=== PATIENT | female | born 1950 | race Caucasian/White ===

== ENCOUNTER → 2021-05-08 13:55 | Outpatient (BNVA) | payer MEDICARE, SELFPAY | PROVIDERS: PCP Family Medicine; Referring Provider Family Medicine; Visit Provider Podiatrist Foot & Ankle Surgery | DX: M79.671 Pain in right foot (principal); M79.672 Pain in left foot; M21.41 Flat foot [pes planus] (acquired), right foot; M21.42 Flat foot [pes planus] (acquired), left foot | CPT/HCPCS: 73630 ==

== ENCOUNTER 2021-05-09 06:00 | Outpatient (RCR) | payer MEDICARE, SELFPAY | END 2021-05-13 23:59 | disposition home or self-care (01) | LOC: GPT 06:00 | PROVIDERS: PCP Family Medicine; Referring Provider Family Medicine; Visit Provider Family Medicine | DX: S20.219D Contusion of unspecified front wall of thorax, subsequent encounter (principal); X58.XXXD Exposure to other specified factors, subsequent encounter | CPT/HCPCS: 97032; 97161; 97530 ==

== ENCOUNTER 2021-05-14 06:00 | Outpatient (RCR) | payer MEDICARE, SELFPAY | END 2021-06-13 23:59 | disposition home or self-care (01) | LOC: GPT 06:00 | PROVIDERS: PCP Family Medicine; Referring Provider Family Medicine; Visit Provider Family Medicine | DX: S20.219D Contusion of unspecified front wall of thorax, subsequent encounter (principal); X58.XXXD Exposure to other specified factors, subsequent encounter | CPT/HCPCS: 97032; 97110; 97530 ==

== ENCOUNTER → 2021-08-15 11:35 | Outpatient (BNVA) | payer MEDICARE, SELFPAY | PROVIDERS: PCP Family Medicine; Referring Provider Family Medicine; Visit Provider Orthopaedic Surgery | DX: M25.562 Pain in left knee (principal); M25.561 Pain in right knee; M17.0 Bilateral primary osteoarthritis of knee | CPT/HCPCS: 73560; 73565 ==

== ENCOUNTER → 2021-09-27 10:08 | Outpatient (BNVA) | payer MEDICARE, SELFPAY | PROVIDERS: PCP Family Medicine; Visit Provider Family Medicine | DX: R10.9 Unspecified abdominal pain (principal) | CPT/HCPCS: 81000 ==

== ENCOUNTER 2021-10-13 23:04 | Emergency (ER) | payer MEDICARE, SELFPAY ==
[2021-10-13 23:27] VITALS: BP 186/113; PULSE 81; RESP 16; TEMP 37.1; O2SAT 97
--- NOTE | 2021-10-13 23:40 | ED_ITS ---
HPI - Dental/Oral General: Chief complaint: Dental/Oral Stated complaint: Bottom Jaw Pain\Left Ear Pain Time Seen by Provider: 10/13/21 23:20 History of Present Illness: HPI Narrative: Presents with postprocedural dental pain. Patient currently on clindamycin for this infection has had a cap placed on her front tooth and then had some teeth cleaning after that. Patient has pain through her lower jaw with tenderness when she bites down and tenderness to the touch. She said she is taken Tylenol Advil and her tramadol and not taking care of the discomfort. Patient also has anxiety and hypertension has not taken her medication this evening. She states that she has whitecoat hypertension. And her blood pressure normally goes up when she gets seen. MD Complaint: tooth pain Onset (ago): day(s) Duration: constant Severity: moderate Severity scale (1-10): 5 Relieving factors: nothing Associated symptoms: Reports gum swelling; Denies fever(s) Review of Systems Const: Denies: fever(s), chills or body aches Eyes: Denies: change in vision or blurry vision ENMT: Reports: dental pain (Had a cath placed last week and then had cleaning done just soon after that); Denies: throat pain or nasal congestion Card: Reports: other (Hypertension); Denies: chest pain or dyspnea on exertion Resp: Denies: dyspnea, productive cough or non-productive cough GI: Denies: abdominal pain, nausea or vomiting Musc: Denies: extremity pain Skin/Breast: Denies: rash Neuro: Denies: headache(s) Psych: Denies: anxiety or depression Ion/Lymph: Denies: easy bruising PFSH ED PFSH: Medical History (Updated 10/13/21 @ 23:37 by ESTUARDO Avila) Anxiety Breast cancer Cervical vertebral fusion GERD (gastroesophageal reflux disease) Hyperlipidemia Post-polio syndrome Surgical History (Updated 09/30/21 @ 19:56 by Nohelia Baker MD) H/O arthroscopic knee surgery right H/O dilation and curettage x3 H/O foot surgery bilateral H/O hemorrhoidectomy History of right mastectomy Social History Alcohol intake: never Physical Exam Const: COMMON NORMALS: no acute distress GENERAL APPEARANCE: cooperative HENMT: MOUTH: other (Lower gum is swollen mildly and tender to touch mild redness.) THROAT: posterior oropharynx normal Lymph: LYMPHATIC: lymphadenopathy left submandibular Skin: COMMON NORMALS: no rashes or lesions noted GENERAL SKIN EXAM: no rashes or lesions noted Course Vital Signs: Vital signs: Vital Signs Temperature 98.7 F 10/13/21 23:27 Pulse Rate 81 10/13/21 23:27 Respiratory Rate 16 10/13/21 23:27 Blood Pressure 186/113 10/13/21 23:27 Pulse Oximetry 97 10/13/21 23:27 Discharge Plan Discharge Patient Disposition: Home Clinical Impression: Dental infection, Benign essential HTN, Anxiety Condition: Stable Prescriptions: New hydrocodone-acetaminophen 5-325 mg tablet 1 tab PO TID PRN (Reason: pain) Qty: 14 RF: 0 No Action ascorbate calcium (vitamin C) 500 mg tablet 500 mg PO DAILY RF: 0 ferrous sulfate [Feosol] 325 mg (65 mg iron) tablet 325 mg PO DAILY RF: 0 multivitamin Tablet 1 tab PO DAILY RF: 0 duloxetine 60 mg capsule,delayed release(DR/EC) 60 mg PO BID Qty: 180 RF: 3 melatonin 1 mg tablet 10 mg PO DAILY RF: 0 (DME) bra See Rx Instructions .Route .MEDSUPPLY Qty: 1 RF: 0 clobetasol 0.05 % cream 1 applic topical BID 14 Days Qty: 45 RF: 0 gabapentin 300 mg capsule 300 mg PO .COMPLEX RF: 0 levocetirizine [Xyzal] 5 mg tablet 5 mg PO DAILY PRN (Reason: allergy symptoms) Qty: 90 RF: 3 triamcinolone acetonide 0.5 % ointment 1 applic topical TID Qty: 15 RF: 1 alprazolam 0.25 mg tablet 0.25 mg PO BID PRN (Reason: anxiety) Qty: 60 RF: 0 tramadol 50 mg tablet 50 mg PO BID PRN (Reason: pain) Qty: 60 RF: 0 sulfamethoxazole-trimethoprim [Bactrim DS] 800-160 mg tablet 1 tab PO BID Qty: 20 RF: 0 rosuvastatin 20 mg tablet 20 mg PO DAILY Qty: 90 RF: 0 omeprazole 40 mg capsule,delayed release(DR/EC) 40 mg PO DAILY Qty: 90 RF: 0 Discharge Orders: Discharge ED (Routine); Ordered 10/13/21 Ordered By: Jarett Juárez Referrals: Syed Horner, [Primary Care Provider] - Discharge Diet: Usual diet Discharge Activity: Increase activity as tolerated Activity Restrictions/Additional Instructions: Follow-up with medical provider as directed. Take medications as prescribed. Return to the ER or your medical provider if condition worsens. Please read and understand discharge instructions. If any questions ask please. Call your dentist Saturday morning for reevaluation. Coding Level of Care Code ED Interpersonal Communications Professor for Bob Miller
[2021-10-14] MEDS: HYDROcodone-acetaminophen 5-325 mg Tablet 2 TAB PO (00:32)
[2021-10-14 00:35] VITALS: RESP 18
== END 2021-10-14 00:36 | disposition home or self-care (01) ==
PROVIDERS: Emergency Provider Nurse Practitioner Family; PCP Family Medicine
DX: K08.89 Other specified disorders of teeth and supporting structures (principal); I10 Essential (primary) hypertension; F41.9 Anxiety disorder, unspecified; E78.5 Hyperlipidemia, unspecified
CPT/HCPCS: 99283

== ENCOUNTER → 2021-12-11 09:21 | Outpatient (BNVA) | payer MEDICARE, SELFPAY | PROVIDERS: PCP Family Medicine; Visit Provider Family Medicine | DX: R82.90 Unspecified abnormal findings in urine (principal); E78.2 Mixed hyperlipidemia; M79.7 Fibromyalgia; F41.9 Anxiety disorder, unspecified | CPT/HCPCS: 80053; 80061; 81003; 84439; 84443; 85025 ==

== ENCOUNTER → 2021-12-18 09:37 | Outpatient (BNVA) | payer MEDICARE, SELFPAY | PROVIDERS: PCP Family Medicine; Visit Provider Family Medicine | DX: R73.9 Hyperglycemia, unspecified (principal) | CPT/HCPCS: 83036 ==

== ENCOUNTER 2022-01-12 13:36 | Outpatient (CLI) | payer MEDICARE, SELFPAY ==
--- NOTE | 2022-01-12 13:42 | MM_ITS ---
WS: [id number] DIAGNOSTIC LEFT DIGITAL MAMMOGRAM WITH CAD, 3D tomosynthesis. HISTORY: HX OF BREAST CA COMPARISON: 07/20/2020 and 04/14/2019 Technique: CC, MLO and ML views. Breast composition: There are scattered areas of fibroglandular density. No suspicious masses or florentin cifications. No nipple retraction. MM/[place] [id number] IMPRESSION: BI-RADS: 2-Benign FOLLOW UP: 1 Year Follow-up
== END 2022-01-12 13:37 | disposition home or self-care (01) ==
LOC: RAD 13:39
PROVIDERS: PCP Family Medicine; Visit Provider Family Medicine
DX: Z85.3 Personal history of malignant neoplasm of breast (principal)
CPT/HCPCS: 77062

== ENCOUNTER → 2022-03-26 09:25 | Outpatient (BNVA) | payer MEDICARE, SELFPAY | PROVIDERS: PCP Family Medicine; Visit Provider Family Medicine | DX: E11.9 Type 2 diabetes mellitus without complications (principal); M79.7 Fibromyalgia; F41.9 Anxiety disorder, unspecified; Z90.11 Acquired absence of right breast and nipple | CPT/HCPCS: 83036 ==

== ENCOUNTER 2022-04-25 08:50 | Outpatient (RCR) | payer MEDICARE, SELFPAY | END 2022-05-13 23:59 | disposition home or self-care (01) | LOC: SPT 08:50 | PROVIDERS: Absent Provider Family Medicine; Family Provider Family Medicine; PCP Family Medicine; Referring Provider Family Medicine; Visit Provider Family Medicine | DX: M79.7 Fibromyalgia (principal) | CPT/HCPCS: 97110; 97161 ==

== ENCOUNTER 2022-05-14 06:00 | Outpatient (RCR) | payer MEDICARE, SELFPAY | END 2022-06-13 23:59 | disposition home or self-care (01) | LOC: SPT 06:00 | PROVIDERS: PCP Family Medicine; Visit Provider Family Medicine | DX: M79.7 Fibromyalgia (principal) | CPT/HCPCS: 97110; 97530 ==

== ENCOUNTER 2022-06-14 06:00 | Outpatient (RCR) | payer MEDICARE, SELFPAY | END 2022-07-13 23:59 | disposition home or self-care (01) | LOC: SPT 06:00 | PROVIDERS: PCP Family Medicine; Visit Provider Family Medicine | DX: M79.7 Fibromyalgia (principal); M79.10 Myalgia, unspecified site | CPT/HCPCS: 97110; 97530 ==

== ENCOUNTER 2022-07-01 14:15 | Emergency (ER) | payer OTHER, MEDICARE, SELFPAY ==
[2022-07-01 14:20] VITALS: BP 164/94; PULSE 88; RESP 21; TEMP 36.4; O2SAT 94; BMI 35.4
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
[2022-07-01 18:32] VITALS: PULSE 82; RESP 16; O2SAT 95
== END 2022-07-01 18:36 | disposition home or self-care (01) ==
PROVIDERS: Emergency Provider Nurse Practitioner Family; PCP Family Medicine
DX: M54.6 Pain in thoracic spine (principal); Z85.3 Personal history of malignant neoplasm of breast; E72.3 Disorders of lysine and hydroxylysine metabolism; V49.60XA Unspecified car occupant injured in collision with unspecified motor vehicles in traffic accident, initial encounter
CPT/HCPCS: 70450; 70551; 71045; 72072; 72125; 99284

== ENCOUNTER → 2022-07-20 12:06 | Outpatient (BNVA) | payer MEDICARE, OTHER, SELFPAY | PROVIDERS: PCP Family Medicine; Visit Provider Nurse Practitioner Family | DX: M25.562 Pain in left knee (principal); M79.622 Pain in left upper arm; Z96.652 Presence of left artificial knee joint; V89.2XXA Person injured in unspecified motor-vehicle accident, traffic, initial encounter | CPT/HCPCS: 73060; 73562; 73590 ==

== ENCOUNTER 2022-08-14 06:00 | Outpatient (RCR) | payer OTHER, SELFPAY | END 2022-09-12 23:59 | disposition home or self-care (01) | LOC: SPT 06:00 | PROVIDERS: PCP Family Medicine; Visit Provider Nurse Practitioner Family | DX: M25.562 Pain in left knee (principal); Z96.652 Presence of left artificial knee joint | CPT/HCPCS: 97110; 97161 ==

== ENCOUNTER 2022-09-11 13:41 | Outpatient (CLI) | payer MEDICARE, SELFPAY ==
--- NOTE | 2022-09-11 14:00 | XR_ITS ---
WS: [id number] SCREENING DEXA SCAN [place] CLINICAL INFORMATION: Z78.0 - Asymptomatic menopausal state COMPARISON: None. FINDINGS: The L1-L4 bone mineral density measures 1.237 g/cm2. This corresponds to a T score score of 0.5 and Z score of 1.4. Left femoral neck bone mineral density measures 0.883 g/cm2. This corresponds to a T score of -1.0 an d Z score of 0.1. Right femoral neck bone mineral density measures 0.891 g/cm2. This corresponds to a T score -0.9of an d Z score of 0.2. Mean femoral neck bone mineral density measures 0.887 g/cm2. This corresponds to a T score of -1.0 an d Z score of 0.2. XR/XR DEXA axial skeleton* [id number] IMPRESSION: Normal bone mineralization lumbar spine. Osteopenia femoral necks at the lower end of the range. Patient's FRAX calculated 10 year probability for major osteoporotic fracture i s 11.7 % and osteoporotic hip fracture is 2.6%.
== END 2022-09-11 13:42 | disposition home or self-care (01) ==
LOC: RAD 13:44
PROVIDERS: PCP Family Medicine; Visit Provider Nurse Practitioner Family
DX: Z78.0 Asymptomatic menopausal state (principal); M85.88 Other specified disorders of bone density and structure, other site
CPT/HCPCS: 77080

== ENCOUNTER 2022-09-13 06:00 | Outpatient (RCR) | payer OTHER, MEDICARE, SELFPAY | END 2022-10-13 23:59 | disposition home or self-care (01) | LOC: SPT 06:00 | PROVIDERS: PCP Family Medicine; Visit Provider Nurse Practitioner Family | DX: Z96.652 Presence of left artificial knee joint (principal); M25.562 Pain in left knee | CPT/HCPCS: 97110 ==

== ENCOUNTER 2022-10-14 06:00 | Outpatient (RCR) | payer OTHER, MEDICARE, SELFPAY | END 2022-10-29 23:59 | disposition home or self-care (01) | LOC: SPT 06:00 | PROVIDERS: PCP Family Medicine; Visit Provider Nurse Practitioner Family | DX: M25.562 Pain in left knee (principal); Z96.652 Presence of left artificial knee joint | CPT/HCPCS: 97110 ==

== ENCOUNTER → 2022-11-21 13:10 | Outpatient (BNVA) | payer MEDICARE, SELFPAY | PROVIDERS: PCP Family Medicine; Visit Provider Family Medicine | DX: E11.9 Type 2 diabetes mellitus without complications (principal) | CPT/HCPCS: 83036 ==

== ENCOUNTER 2023-01-24 09:46 | Outpatient (CLI) | payer MEDICARE, SELFPAY ==
--- NOTE | 2023-01-24 10:00 | MM_ITS ---
WS: [id number] DIAGNOSTIC BILATERAL DIGITAL BREAST TOMOSYNTHESIS MAMMOGRAPHY WITH CAD HISTORY: History of breast cancer. COMPARISON: 01/12/2022, 07/20/2020 TECHNIQUE: Bilateral craniocaudad, mediolateral oblique, and mediolateral views are submitted with to mosfoster and DAVID. Computer aided detection utilized. Breast composition: There are scattered areas of fibroglandular density. Volume loss in the RIGHT lacy ast from prior lumpectomy. Postsurgical changes. No recurrent mass. No suspicious calcifications. Rick ign calcifications in each breast. MM/[place] [id number] IMPRESSION: BI-RADS: 2-Benign FOLLOW UP: 1 Year Follow-up
== END 2023-01-24 09:47 | disposition home or self-care (01) ==
PROVIDERS: PCP Family Medicine; Visit Provider Nurse Practitioner Family
DX: Z85.3 Personal history of malignant neoplasm of breast (principal); Z90.11 Acquired absence of right breast and nipple
CPT/HCPCS: 77062; G0279

== ENCOUNTER → 2023-02-01 13:37 | Outpatient (BNVA) | payer MEDICARE, SELFPAY | PROVIDERS: PCP Family Medicine; Visit Provider Nurse Practitioner Family | DX: M54.9 Dorsalgia, unspecified (principal) | CPT/HCPCS: 81000 ==

== ENCOUNTER 2023-05-09 06:40 | Outpatient (CLI) | payer MEDICARE, SELFPAY ==
--- NOTE | 2023-05-09 07:15 | US_ITS ---
WS: [id number] PELVIC ULTRASOUND REASON FOR EXAM: N93.9 - Abnormal uterine and vaginal bleeding, unspecified COMPARISON: None available. ORDER DATE: 05/09/2023 6:52 AM TECHNIQUE: Grayscale and Doppler transabdominal and transvaginal pelvic ultrasound. FINDINGS: The retroverted uterus measures 8.3 cm x 3.9 cm x 2.1 cm,. There is a small amount of endometrial cav ity fluid. The endometrial cavity measures approximately 13 mm in diameter. Multiple nabothian cyst. The right ovary was not visualized. The left ovary measures 1.7 cm x 1.3 cm x 2.0 cm. Vascular flow in each adnexa is unremarkable as visualized US/US pelv w/transvag [id number] IMPRESSION: Unremarkable study.
== END 2023-05-09 06:41 | disposition home or self-care (01) ==
PROVIDERS: PCP Family Medicine; Visit Provider Obstetrics & Gynecology
DX: N93.9 Abnormal uterine and vaginal bleeding, unspecified (principal)
CPT/HCPCS: 76830; 76856

== ENCOUNTER → 2023-05-22 16:38 | Outpatient (BNVA) | payer MEDICARE, SELFPAY | PROVIDERS: PCP Family Medicine; Visit Provider Family Medicine | DX: E11.9 Type 2 diabetes mellitus without complications (principal) | CPT/HCPCS: 80053; 80061; 83036; 84439; 84443; 85025 ==

== ENCOUNTER → 2023-06-04 10:39 | Outpatient (BNVA) | payer MEDICARE, SELFPAY | PROVIDERS: PCP Family Medicine; Visit Provider Surgery | DX: R10.9 Unspecified abdominal pain (principal); Z86.010 Personal history of colon polyps | CPT/HCPCS: 99203 ==

== ENCOUNTER 2023-06-25 10:41 | Outpatient (CLI) | payer MEDICARE, SELFPAY ==
--- NOTE | 2023-06-25 10:50 | XR_ITS ---
WS: [id number] Exam: XR lumbar spine min 4V [id number] Date/Time of Exam: 06/25/2023 10:56 AM Reason For Exam: M54.16 - Radiculopathy, lumbar region There appears to be a low-grade compression fracture of the upper plate of L3 without significant los s in vertebral height and no posterior displacement. Fracture age is indeterminate. No other fracture s. Osteopenia. Slight degenerative anterolisthesis of L3 on L4. Facet DJD from L3-S1. Slight levoscol iosis. Incidentally noted is a calcified fibroid in the mid pelvis. Aortoiliac atherosclerosis. IMPRESSION: 1. Low-grade insufficiency compression of the upper plate of L3 age indeterminate. 2. Osteopenia and degenerative changes as detailed above. Slight levoscoliosis. Recommendations: Further evaluation with lumbar MRI could be considered for more definitive evaluatio n.
== END 2023-06-25 10:42 ==
PROVIDERS: PCP Family Medicine; Visit Provider Anesthesiology Pain Medicine
DX: M51.16 Intervertebral disc disorders with radiculopathy, lumbar region; M47.816 Spondylosis without myelopathy or radiculopathy, lumbar region; M17.0 Bilateral primary osteoarthritis of knee; M79.18 Myalgia, other site; V89.2XXA Person injured in unspecified motor-vehicle accident, traffic, initial encounter; X58.XXXA Exposure to other specified factors, initial encounter
CPT/HCPCS: 72110; 99204

== ENCOUNTER 2023-07-18 09:32 | Outpatient (CLI) | payer MEDICARE, SELFPAY ==
--- NOTE | 2023-07-18 10:15 | MR_ITS ---
WS: [id number] MRI LUMBAR SPINE NONCONTRAST HISTORY: M54.16 - Radiculopathy, lumbar region COMPARISON: 06/25/2023 TECHNIQUE: Sagittal and axial multisequence imaging is submitted. Study is compromised by motion artifact. Multiple sequences were repeated. Cervical fusion at C4-5 and C5-6. Hemangioma at T5. L3 Schmorl's node defect. There is slight increased T2 signal in the superior endplate. There is an a dditional Schmorl's node defect on the superior endplate of L5. Disc spaces are diffusely desiccated. Conus terminates normally at L1-2 disc level. L1-L2: Diffuse annular disc bulging with moderate ligamentum flavum and facet arthritis. Mild subarti cular recess encroachment and foraminal narrowing. L2-L3: Mild diffuse annular disc bulging. Disc contacts the traversing L3 nerve roots with narrowing of the subarticular recesses. Mild central and bilateral foraminal narrowing. L3-L4: Mild annular disc bulging with moderate ligamentum flavum and facet arthritis. Disc encroachme nt upon the subarticular recesses. Mild central and bilateral subarticular recess stenosis. L4-L5: Mild annular disc bulging with marked ligamentum flavum and facet arthritis. Mild central with moderate encroachment into the subarticular recesses. Mild foraminal narrowing. Most significant con tact on the traversing L5 nerve roots. L5-S1: Mild annular disc bulging with disc contacting the S1 nerve roots. No high-grade stenosis. RIGHT renal cyst 1.4 cm. Paravertebral soft tissues are otherwise negative. IMPRESSION: 1. Large Schmorl's node defect along the superior endplate of L2. There is minimal increased signal a long the superior endplate. Suspect this may be a subacute Schmorl's node. There is no retropulsion. 2. L4-5: Marked ligamentum flavum and facet arthritis. Moderate disc encroachment into the subarticul ar recesses with contact on the traversing L5 nerve roots. Mild central stenosis. 3. L3-4: Mild central and bilateral subarticular recess encroachment. 4. L2-3: Mild central and bilateral foraminal stenosis. 5. L1-2: Mild subarticular recess and foraminal stenosis
== END 2023-07-18 09:33 | disposition home or self-care (01) ==
PROVIDERS: PCP Family Medicine; Visit Provider Anesthesiology Pain Medicine
DX: M54.16 Radiculopathy, lumbar region (principal); M51.46 Schmorl's nodes, lumbar region; M47.816 Spondylosis without myelopathy or radiculopathy, lumbar region; M48.061 Spinal stenosis, lumbar region without neurogenic claudication
CPT/HCPCS: 72148

== ENCOUNTER 2023-07-24 06:49 | Day surgery (SDC) | payer MEDICARE, SELFPAY ==
[2023-07-22 10:09] VITALS: BMI 31.6
[2023-07-24 06:56] VITALS: BP 164/93; PULSE 77; RESP 18; TEMP 36.1; O2SAT 94
[2023-07-24] MEDS: sodium chloride 0.9% 1,000 ML 30 ML IV (07:20)
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
--- NOTE | 2023-07-24 08:09 | PM.HP ---
Providers/Chief Complaint Primary Care Provider: Syed Horner DO Chief Complaint: Z12.11, Z86.010 History of Present Illness Meg Santiago is a 72 year old female Review of Systems General: Reports: 10 or more systems reviewed and unremarkable except in HPI and below Medications/Allergies Home Medications Medication Instructions Recorded Confirmed Last Taken Type ascorbate calcium (vitamin C) 500 500 mg PO DAILY 12/07/20 07/22/23 07/22/23 History mg tablet ferrous sulfate 325 mg (65 mg 325 mg PO DAILY 12/07/20 07/22/23 07/22/23 History iron) tablet (Feosol) multivitamin 1 tab PO DAILY 12/07/20 07/22/23 07/22/23 History melatonin 1 mg tablet 10 mg PO DAILY 03/30/21 07/22/23 07/22/23 History omega-3 fatty acids 500 mg capsule 500 mg PO DAILY 03/30/22 07/22/23 07/22/23 History bed rail #1 ea 04/11/22 07/22/23 Unknown Rx cyanocobalamin (vitamin B-12) 1,000 mcg PO DAILY 05/17/22 07/22/23 07/22/23 History 1,000 mcg capsule bra #1 ea 11/22/22 07/22/23 Unknown Rx gabapentin 300 mg capsule 300 mg PO .COMPLEX #450 caps 11/26/22 07/22/23 07/22/23 Rx rosuvastatin 20 mg tablet 20 mg PO DAILY #90 tabs 11/26/22 07/22/23 07/22/23 Rx cyclobenzaprine 10 mg tablet 10 mg PO TID PRN muscle spasm #20 02/01/23 07/22/23 Unknown Rx tabs meclizine 25 mg tablet 25 mg PO QID PRN dizziness #30 tabs 02/26/23 07/22/23 Unknown Rx duloxetine 60 mg capsule,delayed 60 mg PO BID #180 caps 03/28/23 07/22/23 07/22/23 Rx release clobetasol 0.05 % topical cream 1 applic topical BID 2 weeks #45 05/06/23 07/22/23 Unknown Rx grams estradiol 0.01% (0.1 mg/gram) 0.5 g vaginal DAILY #42.5 grams 05/06/23 07/22/23 Unknown Rx vaginal cream (Estrace) hydroxyzine HCl 25 mg tablet 25 mg PO BID PRN itching #30 tabs 05/24/23 07/22/23 Unknown Rx tramadol 50 mg tablet 50 mg PO BID PRN pain #60 tabs 05/24/23 07/22/23 07/22/23 Rx omeprazole 40 mg capsule,delayed See Rx Instructions .Route 06/19/23 07/22/23 07/22/23 Rx release .COMPLEX #90 caps Allergies Allergy/AdvReac Type Severity Reaction Status Date / Time No Known Allergies Allergy Verified 07/24/23 07:03 PFSH Acute PFSH: Medical History Anxiety Breast cancer Cervical vertebral fusion GERD (gastroesophageal reflux disease) Hyperlipidemia Post-polio syndrome Surgical History H/O arthroscopic knee surgery right H/O dilation and curettage x3 H/O foot surgery bilateral H/O hemorrhoidectomy History of right mastectomy Hx of colonoscopy with polypectomy unknown when last done Hx of total knee replacement left knee Family History Other Patient unsure of family history Social History Smoking and tobacco status: never smoked Alcohol intake: never Vitals/I&O/Wt Last Vital Signs Temp 97.0 F L 07/24/23 06:56 Pulse 77 07/24/23 06:56 Resp 18 07/24/23 06:56 BP 164/93 07/24/23 06:56 Pulse Ox 94 07/24/23 06:56 Weight last 48 hrs Weight 184 lb A&P Assessment and plan (1) Colon cancer screening: Plan Colonoscopy Attestations Medical Necessity Statement*: Home Coding Level of Care Code Acute Code for Chg Fwd Diagnoses Colon cancer screening Z12.11
[2023-07-24 08:39] VITALS: BP 156/100; PULSE 64; RESP 18; O2SAT 92
[2023-07-24 08:53] VITALS: BP 156/105; PULSE 64; RESP 18; O2SAT 95
--- NOTE | 2023-07-24 16:14 | ANE.PACU2 ---
Inpatient post-anesthesia follow up: Airway intact: Yes Vital signs: Temperature 97.0 F Pulse Rate 64 Respiratory Rate 18 Blood Pressure 156/105 Pulse Oximetry 95 Oxygen Delivery Me thod Room Air Oxygen Flow Rate Fraction of Inspir ed Oxygen Hydration adequate: Yes Nausea and vomiting: No Pain level: 2 Mental status: Baseline
== END 2023-07-24 09:15 | disposition home or self-care (01) ==
PROVIDERS: PCP Family Medicine; Visit Provider Surgery
PROC: 0DJD8ZZ Inspection of Lower Intestinal Tract, Via Natural or Artificial Opening Endoscopic (ICD-10-PCS; CPT 45378; principal; 2023-07-24 08:15)
DX: Z12.11 Encounter for screening for malignant neoplasm of colon (principal); K57.30 Diverticulosis of large intestine without perforation or abscess without bleeding; D12.3 Benign neoplasm of transverse colon; G47.30 Sleep apnea, unspecified; Z91.199 Patient's noncompliance with other medical treatment and regimen due to unspecified reason; I10 Essential (primary) hypertension; Z86.010 Personal history of colon polyps; Z87.11 Personal history of peptic ulcer disease; E78.5 Hyperlipidemia, unspecified; Z86.73 Personal history of transient ischemic attack (TIA), and cerebral infarction without residual deficits; Z85.3 Personal history of malignant neoplasm of breast
CPT/HCPCS: 45385; 88305; J2704; J7030

== ENCOUNTER → 2023-08-06 13:14 | Outpatient (BNVA) | payer MEDICARE, SELFPAY | PROVIDERS: PCP Family Medicine; Visit Provider Surgery | DX: K59.00 Constipation, unspecified; D37.4 Neoplasm of uncertain behavior of colon | CPT/HCPCS: 99213 ==

== ENCOUNTER → 2023-08-12 10:15 | Outpatient (BNVA) | payer MEDICARE, SELFPAY | PROVIDERS: PCP Family Medicine; Visit Provider Anesthesiology Pain Medicine | DX: M79.18 Myalgia, other site (principal); M48.061 Spinal stenosis, lumbar region without neurogenic claudication | CPT/HCPCS: 20553; 99215; J1030; J3490 ==

== ENCOUNTER → 2023-08-26 09:42 | Outpatient (BNVA) | payer MEDICARE, SELFPAY | PROVIDERS: PCP Family Medicine; Visit Provider Family Medicine | DX: F41.9 Anxiety disorder, unspecified (principal); Z13.29 Encounter for screening for other suspected endocrine disorder | CPT/HCPCS: 84443 ==

== ENCOUNTER → 2023-10-03 12:20 | Outpatient (BNVA) | payer MEDICARE, SELFPAY | PROVIDERS: PCP Family Medicine; Visit Provider Family Medicine | DX: E11.9 Type 2 diabetes mellitus without complications (principal) | CPT/HCPCS: 83036 ==

== ENCOUNTER 2024-08-19 10:49 | Outpatient (CLI) | payer OTHER, SELFPAY ==
--- NOTE | 2024-08-19 11:30 | MM_ITS ---
WS: [email or web address] DIAGNOSTIC BILATERAL DIGITAL BREAST TOMOSYNTHESIS MAMMOGRAPHY WITH CAD HISTORY: Z85.3 - Personal history of malignant neoplasm of breast COMPARISON: 01/24/2023, 01/12/2022 TECHNIQUE: Bilateral craniocaudad, mediolateral oblique, and mediolateral views are submitted with to mosynthesis and SM. Computer aided detection utilized. Breast composition: There are scattered areas of fibroglandular density. Mild volume loss in the RIGHT breast from prior lumpectomy. No suspicious mass or calcification. No d istortion. Dystrophic calcifications at the postoperative lumpectomy site in the posterior RIGHT [address]. MM/MM diag BI tomosynthesis [id number] IMPRESSION: BI-RADS: 2 - Benign. FOLLOW UP: 1 Year Follow-up
== END 2024-08-19 10:50 | disposition home or self-care (01) ==
LOC: RAD 10:50
PROVIDERS: PCP Family Medicine; Visit Provider Nurse Practitioner Family
DX: Z85.3 Personal history of malignant neoplasm of breast (principal); R92.323 Mammographic fibroglandular density, bilateral breasts; R92.1 Mammographic calcification found on diagnostic imaging of breast
CPT/HCPCS: 77062; G0279

== ENCOUNTER → 2024-08-26 09:00 | Outpatient (BNVA) | payer OTHER, SELFPAY | PROVIDERS: PCP Family Medicine; Visit Provider Nurse Practitioner Family | DX: Z00.00 Encounter for general adult medical examination without abnormal findings (principal); E78.2 Mixed hyperlipidemia; E11.9 Type 2 diabetes mellitus without complications; Z68.33 Body mass index [BMI] 33.0-33.9, adult | CPT/HCPCS: 80053; 80061; 82306; 83036 ==

== ENCOUNTER 2024-09-18 13:14 | Outpatient (CLI) | payer OTHER, SELFPAY ==
--- NOTE | 2024-09-18 13:30 | XR_ITS ---
WS: [email or web address] SCREENING DEXA SCAN Total Immersion CLINICAL INFORMATION: Z78.0 - Asymptomatic menopausal state COMPARISON: 2021 FINDINGS: The L1-L4 bone mineral density measures 1.252 g/cm2. This corresponds to a T score score of 0.6 and Z score of 1.6. Left femoral neck bone mineral density measures 0.831 g/cm2. This corresponds to a T score of -1.4 an d Z score of -0.2. Right femoral neck bone mineral density measures 0.857 g/cm2. This corresponds to a T score -1.2of an d Z score of 0.0. Mean femoral neck bone mineral density measures 0.844 g/cm2. This corresponds to a T score of -1.3 an d Z score of -0.1. XR/XR DEXA axial skeleton* [id number] IMPRESSION: Normal bone mineralization lumbar spine. Osteopenia femoral necks Patient's FRAX calculated 10 year probability for major osteoporotic fracture i s 14.3% and osteoporotic hip fracture is 4.0%. Bone mineral density lumbar spine increased 1.2% bone mineral density femoral necks decreased -4.8%
== END 2024-09-18 13:15 | disposition home or self-care (01) ==
LOC: RAD 13:15
PROVIDERS: PCP Family Medicine; Visit Provider Nurse Practitioner Family
DX: Z13.820 Encounter for screening for osteoporosis (principal); Z78.0 Asymptomatic menopausal state; M85.80 Other specified disorders of bone density and structure, unspecified site
CPT/HCPCS: 77080

== ENCOUNTER → 2024-12-15 08:45 | Outpatient (BNVA) | payer MEDICARE, SELFPAY | PROVIDERS: PCP Nurse Practitioner Family; Visit Provider Nurse Practitioner Family | DX: E11.9 Type 2 diabetes mellitus without complications (principal); E78.2 Mixed hyperlipidemia; L82.1 Other seborrheic keratosis; R03.0 Elevated blood-pressure reading, without diagnosis of hypertension; F41.9 Anxiety disorder, unspecified; L82.0 Inflamed seborrheic keratosis | CPT/HCPCS: 80053; 80061; 82043; 83036 ==

== ENCOUNTER → 2024-12-25 09:37 | Outpatient (BNVA) | payer MEDICARE, SELFPAY | PROVIDERS: PCP Nurse Practitioner Family; Visit Provider Nurse Practitioner Family | DX: R82.90 Unspecified abnormal findings in urine (principal) | CPT/HCPCS: 81000 ==

== ENCOUNTER → 2025-01-19 07:56 | Outpatient (BNVA) | payer MEDICARE, SELFPAY | PROVIDERS: PCP Nurse Practitioner Family; Visit Provider Psychiatry & Neurology Neurology | DX: R42 Dizziness and giddiness (principal); G43.909 Migraine, unspecified, not intractable, without status migrainosus; E23.6 Other disorders of pituitary gland; G45.9 Transient cerebral ischemic attack, unspecified; I77.9 Disorder of arteries and arterioles, unspecified; C18.9 Malignant neoplasm of colon, unspecified; Z98.890 Other specified postprocedural states; M62.838 Other muscle spasm; G96.01 Cranial cerebrospinal fluid leak, spontaneous; K25.9 Gastric ulcer, unspecified as acute or chronic, without hemorrhage or perforation; G44.86 Cervicogenic headache | CPT/HCPCS: 99203 ==

== ENCOUNTER 2025-01-21 13:19 | Outpatient (CLI) | payer MEDICARE, SELFPAY ==
--- NOTE | 2025-01-21 13:45 | MR_ITS ---
WS: [email or web address] MRI BRAIN WITHOUT AND WITH CONTRAST, ATTENTION DIRECTED TO THE PITUITARY GLAND HISTORY: R42 - Dizziness and giddiness COMPARISON: 07/01/2022 TECHNIQUE: Diffusion-weighted imaging, axial T2 sequence, and postcontrast images in 3 planes are performed. High-resolution coronal and sagittal imaging performed through the pituitary region with and without intravenous gadolinium. No diffusion abnormality to suggest an acute infarct. Mild symmetric cerebral and cerebellar atrophy. Minimal hippocampal atrophy. Empty sella turcica with the pituitary gland and the floor of the sella. Similar to the prior study. Ventricles and extra-axial spaces are mildly dilated on the basis of atrophy. Minimal T2 and FLAIR signal hyperintensities in the periventricular and subcortical white matter. Similar to the prior study from 2021. No large territory infarct. No mass in the region of the sella turcica or pituitary gland. On the postcontrast imaging there is no hypointense nodule. No deviation of the optic chiasm or infundibulum. No enhancing masses are noted within the brain. Bilateral mucous retention cysts in the maxillary sinuses. No air-fluid levels. Very small effusion in the LEFT mastoid air cells. MR/MR pituitary wo/w con* [id number] IMPRESSION: 1. Empty sella turcica. 2. No pituitary mass or abnormal enhancement. 3. No acute infarct. 4. Mild symmetric cerebral and cerebellar atrophy and hippocampal atrophy. 5. Mild small vessel ischemic disease similar to 2021. 6. No abnormality noted at the cerebellopontine angles.
--- NOTE | 2025-01-21 14:30 | MR_ITS ---
WS: [email or web address] MRI CERVICAL SPINE with and without contrast HISTORY: Z98.890 - Other specified postprocedural states COMPARISON: None available. Technique: Multiplanar, multisequence noncontrast imaging of the cervical spine. Post contrast MultiHance 20 mL. Straightening of the normal cervical lordosis. Bony fusion at C4, C5 and C6. No acute fractures. Signal within the cervical cord is normal. Visualized posterior fossa is unremarkable. Craniocervical junction, C1 and C2 relationship, odontoid process and soft tissues are normal. C2-C3: Mild LEFT foraminal stenosis. C3-C4: Mild osteophytic ridging with foraminal osteophytes and vertebral body osteophytes. Mild central with moderate bilateral foraminal stenosis, LEFT greater than RIGHT. Facet arthritis. C4-C5: Minimal foraminal narrowing. C5-C6: Mild osteophytic ridging and moderate foraminal narrowing. C6-C7: Diffuse annular disc bulging with osteophytic ridging. Mild central with moderate to severe bilateral foraminal stenosis. C7-T1: Mild foraminal stenosis. Postcontrast imaging is nondiagnostic. Significant motion artifact on all sequences. MR/MR cervical spine wo/w [id number] IMPRESSION: 1. Nondiagnostic postcontrast imaging of the cervical spine. 2. Osseous fusion from C4-C6. 3. Multilevel areas of foraminal stenosis predominantly due to osteophyte, fac et and disc disease. 4. C3-4: Mild central and moderate bilateral foraminal stenosis, LEFT greater than RIGHT. 5. C5-6: Moderate foraminal stenosis. 6. C6-7: Mild central with moderate to severe bilateral foraminal stenosis.
== END 2025-01-21 13:20 | disposition home or self-care (01) ==
PROVIDERS: PCP Nurse Practitioner Family; Visit Provider Psychiatry & Neurology Neurology
DX: Z98.890 Other specified postprocedural states (principal); M62.838 Other muscle spasm; R42 Dizziness and giddiness; E23.6 Other disorders of pituitary gland; G31.89 Other specified degenerative diseases of nervous system; I67.82 Cerebral ischemia; M27.40 Unspecified cyst of jaw; H74.8X2 Other specified disorders of left middle ear and mastoid
CPT/HCPCS: 70553; 72156

== ENCOUNTER 2025-01-27 10:14 | Outpatient (CLI) | payer MEDICARE, SELFPAY ==
--- NOTE | 2025-01-27 11:00 | MR_ITS ---
WS: [email or web address] MRA CAROTID WITHOUT AND WITH GADOLINIUM ENHANCEMENT TECHNIQUE: Axial 2-D TOF and gadolinium bolus images obtained with axial images and axial, sagittal, and coronal 2-D reformatted images. CLINICAL INFORMATION: G45.9 - Transient cerebral ischemic attack, unspecified COMPARISON: None. FINDINGS: RIGHT: RIGHT common carotid artery is patent. No significant RIGHT ICA stenosis. RIGHT ICA is patent to the skull base. Tortuous RIGHT ICA at the skull base. LEFT: LEFT common carotid artery is patent. No significant LEFT ICA stenosis. LEFT ICA is patent to the skull base. Tortuous LEFT ICA at the skull base. Codominant patent vertebral arteries bilaterally. Vertebral arteries are patent to the basilar junction. Proximal subclavian arteries are patent. MR/MR angio neck w con* [id number] IMPRESSION: 1. Unremarkable neck MRA.
--- NOTE | 2025-01-27 11:45 | MR_ITS ---
WS: [email or web address] MRA HEAD TECHNIQUE: Axial 3-D TOF images obtained with axial images and axial, sagittal, and coronal 2-D reformatted images. CLINICAL INFORMATION: G45.9 - Transient cerebral ischemic attack, unspecified COMPARISON: None. FINDINGS: Mild intracranial atheromatous disease. Distal vertebral arteries are patent. Basilar artery is patent. Normal vascularity to the SAW MAKER territory bilaterally. Persistent RIGHT SAW MAKER. Both ICAs are patent at the skull base. Mild cavernous carotid atheromatous disease. Small RIGHT A1 segment. Normal vascularity to the DALE and MCA territories bilaterally. Mild stenosis RIGHT proximal M1 segment which remains patent. MR/MR angio head wo con [id number] IMPRESSION: 1. Mild intracranial atheromatous disease. 2. No evidence of high-grade proximal flow-limiting stenosis. 3. Persistent RIGHT SAW MAKER. 4. Otherwise unremarkable intracranial MRA.
== END 2025-01-27 10:15 | disposition home or self-care (01) ==
LOC: RAD 10:16
PROVIDERS: PCP Nurse Practitioner Family; Visit Provider Psychiatry & Neurology Neurology
DX: G45.9 Transient cerebral ischemic attack, unspecified (principal); I77.9 Disorder of arteries and arterioles, unspecified; I67.2 Cerebral atherosclerosis; R93.0 Abnormal findings on diagnostic imaging of skull and head, not elsewhere classified; I66.01 Occlusion and stenosis of right middle cerebral artery; R93.89 Abnormal findings on diagnostic imaging of other specified body structures
CPT/HCPCS: 70544; 70548

== ENCOUNTER → 2025-02-16 13:09 | Outpatient (BNVA) | payer MEDICARE, SELFPAY | PROVIDERS: PCP Nurse Practitioner Family; Visit Provider Orthopaedic Surgery | DX: M54.2 Cervicalgia (principal) | CPT/HCPCS: 72040; 99204 ==

== ENCOUNTER → 2025-03-11 09:02 | Outpatient (BNVA) | payer MEDICARE, SELFPAY | PROVIDERS: PCP Nurse Practitioner Family; Visit Provider Family Medicine | DX: E11.9 Type 2 diabetes mellitus without complications (principal); N39.0 Urinary tract infection, site not specified; L82.1 Other seborrheic keratosis | CPT/HCPCS: 80053; 81000; 85025; 87086 ==

== ENCOUNTER 2025-03-14 05:00 | Outpatient (RCR) | payer MEDICARE, SELFPAY | END 2025-04-12 23:59 | disposition home or self-care (01) | LOC: GPT 05:00 | PROVIDERS: PCP Nurse Practitioner Family; Visit Provider Family Medicine | DX: M54.59 Other low back pain (principal); M46.1 Sacroiliitis, not elsewhere classified | CPT/HCPCS: 97110; 97112; 97140; 97161 ==

== ENCOUNTER → 2025-03-22 15:30 | Outpatient (BNVA) | payer MEDICARE, SELFPAY | PROVIDERS: PCP Nurse Practitioner Family; Visit Provider Nurse Practitioner Family | DX: E11.9 Type 2 diabetes mellitus without complications (principal) | CPT/HCPCS: 83036 ==

== ENCOUNTER → 2025-03-31 14:19 | Outpatient (BNVA) | payer MEDICARE, SELFPAY | PROVIDERS: PCP Nurse Practitioner Family; Visit Provider Nurse Practitioner Family | DX: K59.00 Constipation, unspecified (principal); K92.1 Melena; N39.0 Urinary tract infection, site not specified | CPT/HCPCS: 74018; 81000; 82270; 87086 ==

== ENCOUNTER 2025-04-13 05:00 | Outpatient (RCR) | payer MEDICARE, SELFPAY | END 2025-05-13 23:59 | disposition home or self-care (01) | LOC: GPT 05:00 | PROVIDERS: PCP Nurse Practitioner Family; Visit Provider Family Medicine | DX: M54.17 Radiculopathy, lumbosacral region (principal); M46.1 Sacroiliitis, not elsewhere classified; M54.59 Other low back pain | CPT/HCPCS: 97110; 97112; 97140; 97164 ==

== ENCOUNTER 2025-05-14 05:00 | Outpatient (RCR) | payer MEDICARE, SELFPAY | END 2025-06-13 23:59 | disposition home or self-care (01) | LOC: GPT 05:00 | PROVIDERS: PCP Nurse Practitioner Family; Visit Provider Family Medicine | DX: M54.17 Radiculopathy, lumbosacral region (principal); M46.1 Sacroiliitis, not elsewhere classified; M54.59 Other low back pain | CPT/HCPCS: 97110; 97112; 97140; 97164; 97530 ==

== ENCOUNTER → 2025-05-18 13:00 | Outpatient (BNVA) | payer MEDICARE, SELFPAY | PROVIDERS: PCP Nurse Practitioner Family; Visit Provider Orthopaedic Surgery | DX: M51.16 Intervertebral disc disorders with radiculopathy, lumbar region (principal) | CPT/HCPCS: 99213 ==

== ENCOUNTER → 2025-06-03 09:31 | Outpatient (BNVA) | payer MEDICARE, SELFPAY | PROVIDERS: PCP Nurse Practitioner Family; Visit Provider Internal Medicine | DX: E11.9 Type 2 diabetes mellitus without complications (principal); E78.2 Mixed hyperlipidemia | CPT/HCPCS: 99214 ==

== ENCOUNTER 2025-06-14 05:00 | Outpatient (RCR) | payer MEDICARE, SELFPAY | END 2025-07-13 23:59 | disposition home or self-care (01) | LOC: GPT 05:00 | PROVIDERS: PCP Nurse Practitioner Family; Visit Provider Family Medicine | DX: S39.012D Strain of muscle, fascia and tendon of lower back, subsequent encounter (principal); X58.XXXD Exposure to other specified factors, subsequent encounter | CPT/HCPCS: 97110; 97140 ==

== ENCOUNTER → 2025-08-24 09:31 | Outpatient (BNVA) | payer MEDICARE, SELFPAY | PROVIDERS: PCP Nurse Practitioner Family; Visit Provider Family Medicine | DX: E11.9 Type 2 diabetes mellitus without complications (principal); E78.2 Mixed hyperlipidemia | CPT/HCPCS: 80053; 80061; 82043; 83036 ==